=== PATIENT | male | born 1980 | race Caucasian/White ===

== ENCOUNTER 2017-11-02 10:47 | Emergency (ER) | payer SELFPAY ==
[~2017-11-02] VITALS: Ht 182.9 cm; Wt 116.1 kg
[2017-11-02] MEDS ORDERED: BENZOCAINE 20% SPRAY 0.5ML TP ONE (11:30)
[2017-11-02] MEDS ORDERED: DIAZEPAM 5 MG/ML, 2ML IM ONE ×2 (11:30→12:00)
[2017-11-02] MEDS ORDERED: KETOROLAC 30 MG/1 ML IM ONE (11:30)
[2017-11-02] MEDS ORDERED: LIDOCAINE 1%-EPI 1:100K, 20ML INFIL ONE (11:30)
[2017-11-02] MEDS ORDERED: KETOROLAC 30 MG/1 ML ONE (11:52)
[2017-11-02] MEDS ORDERED: BENZOCAINE 20% SPRAY 0.5ML ONE (11:52)
[2017-11-02] MEDS ORDERED: BENZOCAINE AEROSOL SPRAY 20%, 60ML ONE (12:25)
[2017-11-02] MEDS ORDERED: AMPICILLIN/SULBACTAM 3 GM in SODIUM CHLORIDE 0.9% 100 ML IV ONE (12:30)
[2017-11-02] MEDS ORDERED: DEXAMETHASONE 4 MG TABLET ONE (12:57)
[2017-11-02] MEDS ORDERED: DEXAMETHASONE 4 MG TABLET PO ONE (13:00)
[2017-11-02 14:01] VITALS: BP 137/86
== END 2017-11-02 14:03 | disposition home or self-care (01) ==
LOC: ED 13:06
DX: J36 Peritonsillar abscess (principal)
CPT/HCPCS: 96365; 96372; 99284; J0295; J1885; J3360